=== PATIENT | female | born 1995 | race African-American/Black ===

== ENCOUNTER 2019-02-10 03:36 | Emergency (ER) | payer OTHER ==
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
[2019-02-10] MEDS ORDERED: Ibuprofen TAB* 600 MG PO ONE (03:47)
[2019-02-10 05:14] VITALS: BP 99/68
== END 2019-02-10 05:13 | disposition home or self-care (01) ==
LOC: ED 03:36
DX: S20.212A Contusion of left front wall of thorax, initial encounter (principal); W50.0XXA Accidental hit or strike by another person, initial encounter; F17.210 Nicotine dependence, cigarettes, uncomplicated
CPT/HCPCS: 71045; 99282; A9270-GY

== ENCOUNTER 2019-06-07 02:03 | Emergency (ER) | payer OTHER ==
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
[2019-06-07] MEDS: Prochlorperazine TAB* 10 MG PO ONE (02:55)
[2019-06-07] MEDS: Ibuprofen TAB* 600 MG PO ONE (02:55)
[2019-06-07 03:50] VITALS: BP 113/71
== END 2019-06-07 03:50 | disposition home or self-care (01) ==
LOC: ED 02:03
DX: G43.909 Migraine, unspecified, not intractable, without status migrainosus (principal); F17.200 Nicotine dependence, unspecified, uncomplicated; Z79.899 Other long term (current) drug therapy
CPT/HCPCS: 36415; 84702; 99283; A9270-GY; Q0164

== ENCOUNTER → 2019-10-01 11:44 | Emergency (ER) | payer OTHER ==
[~2019-10-01 11:44] MED LIST: Ondansetron INJ* 2 MG/ML VIAL IV ONE
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
[2019-10-01 11:57] LABS: ABS Lymphocytes 1.6 10^3/ul (1.0-4.8); ABS Monocytes 0.7 10^3/ul (0-0.8); ABS Neutrophils 15.4 10^3/ul (1.5-7.7); Eosinophil % 0.3 %; Hematocrit 41 % (35-47); Hemoglobin 13.3 g/dL (12.0-16.0); Lymphocyte % 8.8 %; Mean Corpuscular HGB Conc 32 g/dL (31-36); Mean Corpuscular Hemoglobin 28 pg (27-31); Mean Corpuscular Volume 87 fL (80-97); Mean Platelet Volume 8.4 fL (7.4-10.4); Platelet Count 186 10^3/uL (150-450); Red Blood Count 4.71 10^6 /uL (3.70-4.87); Red Cell Distribution Width 14 % (10-15); White Blood Count 17.7 10^3/uL (3.5-10.8)
[2019-10-01 12:14] LABS: ALT 10 U/L (7-52); AST 22 U/L (13-39); Albumin 4.4 g/dL (3.2-5.2); Albumin/Globulin Ratio 1.4 (1-3); Alkaline Phosphatase 58 U/L (34-104); Anion Gap 8 mmol/L (2-11); BUN/Creatinine Ratio 16.5 (8-20); Blood Urea Nitrogen 14 mg/dL (6-24); CO2 Carbon Dioxide 27 mmol/L (22-32); Calcium 9.7 mg/dL (8.6-10.3); Chloride 102 mmol/L (101-111); EGFR African American 97.8 (>60); EGFR Non-African American 80.8 (>60); Globulin 3.2 g/dL (2-4); Glucose 157 mg/dL (70-100); Potassium 4.4 mmol/L (3.5-5.0); Sodium 137 mmol/L (135-145); Total Protein 7.6 g/dL (6.4-8.9)
--- OUTSIDE RECORDS SUMMARY | 2019-10-01 12:16 | XMS REPORT | Continuity of Care Document ---
:1995 External Reference #:[id number] Author Name Chelle Alfonso MD (transmitted by agent of provider Sarai Holt) Address [address], [place] [address] Care Team Providers Name Role Phone Chelle Alfonso MD - Internal Care Team Information [employer] Medicine Problems Active Problems Provider Date H/O: depression Chelle Alfonso MD Onset: 09/07/2019 Anxiety Chelle Alfonso MD Onset: 09/07/2019 Low back pain Chelle Alfonso MD Onset: 09/07/2019 Sciatica Chelle Alfonso MD Onset: 09/07/2019 Social History Type Date Description Comments Sex Unknown Tobacco Use Start: Unknown Light tobacco smoker (10 or fewer cigarettes/day) Smoking Status Reviewed: 09/07/19 Light tobacco smoker (10 or fewer cigarettes/day) ETOH Use Denies alcohol use Tobacco Use Start: Unknown Light tobacco smoker (10 or fewer cigarettes/day) Recreational Drug Use Denies Drug Use Exercise Type/Frequency Exercises regularly walking daily Allergies, Adverse Reactions, Alerts Description No Known Drug Allergies Medications Active Medications SIG Qnty Indications Ordering Provider Date Abilify 1 by mouth every Unknown 10mg Tablets day Zoloft 1 by mouth every Unknown 50mg Tablets day Gabapentin 3 caps at bedtime Unknown 100mg Capsules as needed. Ibuprofen 200 400-600mg every 6 Unknown 200mg hours as needed Tablets for pain. Naproxen Sodium take 1 tab twice Unknown 220mg a day as needed Capsules for pain take with food Immunizations CPT Code Status Date Vaccine Reaction Lot # [id number] Given 09/07/2019 Influenza Virus Vaccine, No immediate reaction [id number] Quadrivalent ([id number]), Derived From Cell Vital Signs Date Vital Result Comment 09/07/2019 10:02am Height 60 inches 5'0" Weight 97.00 lb Heart Rate 90 /min BP Systolic 98 mmHg BP Diastolic 73 mmHg Body Temperature 97.8 F O2 % BldC Oximetry 99 % BMI (Body Mass Index) 18.9 kg/m2 12/22/2018 12:11pm Height 60 inches 5'0" Weight 101.00 lb Heart Rate 80 /min BP Systolic 90 mmHg BP Diastolic 66 mmHg Respiratory Rate 16 /min Body Temperature 98.6 F Pain Level 10 back O2 % BldC Oximetry 98 % BMI (Body Mass Index) 19.7 kg/m2 Results Description No Information Available Procedures Description No Information Available Medical Devices Description No Information Available Encounters Description No Information Available Assessments Date Code Description Provider 09/07/2019 M54.5 Low back pain Chelle Alfonso MD 09/07/2019 M25.559 Pain in unspecified hip Chelle Alfonso MD 09/07/2019 F41.9 Anxiety disorder, unspecified Chelle Alfonso MD 09/07/2019 R22.1 Localized swelling, mass and lump, neck Chelle Alfonso MD 09/07/2019 Z23 Encounter for immunization Chelle Alfonso MD Plan of Treatment Future Appointment(s):10/19/2019 11:00 am - [facility] Chelle Alfonso, MDM54.5 Low back painNew Therapy: Physical TherapyFollow up:1 month for imhithV63.559 Pain in unspecified hipF41.9 Anxiety disorder, [id number] Localized swelling, mass and lump, neckComments:Need records from [facility] re: lump US and CTZ23 Encounter for immunization Functional Status Description No Information Available Mental Status Description No Information Available Referrals Description No Information Available
[2019-10-01 12:20] LABS: HCG Pregnancy < 0.60 mIU/mL
[2019-10-01 13:29] LABS: Acetaminophen < 15 mcg/mL; Alcohol < 10 mg/dL (<10); Salicylate < 2.50 mg/dL (<30)
[2019-10-01 13:37] VITALS: BP 121/67
== END | disposition home or self-care (01) ==
LOC: ED 11:44
DX: T40.1X1A Poisoning by heroin, accidental (unintentional), initial encounter (principal); Y92.009 Unspecified place in unspecified non-institutional (private) residence as the place of occurrence of the external cause; F41.9 Anxiety disorder, unspecified; F17.200 Nicotine dependence, unspecified, uncomplicated
CPT/HCPCS: 36415; 80053; 80320; 80329; 84702; 85025; 96374; 99283; G0480; J2405